=== PATIENT | male | born 1945 | race Caucasian/White ===

== ENCOUNTER 2017-07-27 10:13 | Emergency (ER) | payer MEDICARE, OTHER ==
[~2017-07-27] VITALS: Ht 182.9 cm; Wt 85.0 kg
[2017-07-27 11:29] LABS: BASOPHILS # (AUTO) 0.08 x10^3/uL (0-0.1); BASOPHILS % (AUTO) 1 % (0-1); EOSINOPHILS % (AUTO) 3 % (1-7); LYMPHOCYTES # (AUTO) 1.49 x10^3/uL (1-3.4); LYMPHOCYTES % (AUTO) 21 % (22-44); MD NO; MEAN CORPUSCULAR HEMOGLOBIN 19.6 pg (27.5-34.5); MEAN CORPUSCULAR HGB CONC 30.1 g/dL (33.2-36.2); MEAN CORPUSCULAR VOLUME 65.1 fL (81-97); MEAN PLATELET VOLUME 6.9 fL (7.4-10.4); MONOCYTES # (AUTO) 0.66 x10^3/uL (0.2-0.8); MONOCYTES % (AUTO) 9 % (2-9); NEUTROPHILS # (AUTO) 4.84 x10^3/uL (1.8-6.8); NEUTROPHILS % (AUTO) 67 % (42-75); PLATELET COUNT 455 x10^3/uL (130-400); RED BLOOD COUNT 3.89 x10^6/uL (4.38-5.82); RED CELL DISTRIBUTION WIDTH 18.7 % (9.4-14.8)
[2017-07-27 11:31] LABS: ALANINE AMINOTRANSFERASE 40 U/L (12-78); ALBUMIN 3.6 g/dL (3.4-5.0); ANION GAP 7 mmol/L (5-15); CALCIUM 7.9 mg/dL (8.5-10.1); CHLORIDE 107 mmol/L (98-107); CREATININE 1.03 mg/dL (0.7-1.3)
[2017-07-27 11:34] LABS: ALKALINE PHOSPHATASE 76 U/L (45-117); BILIRUBIN,TOTAL 0.4 mg/dL (0.2-1.0); TOTAL PROTEIN 7.2 g/dL (6.4-8.2)
[2017-07-27 13:51] VITALS: BP 97/56
[2017-07-27 14:15] VITALS: BP 114/67
[2017-07-27 15:55] VITALS: BP 105/66
[2017-07-27 15:59] VITALS: BP 112/63
[2017-07-27 16:59] VITALS: BP 101/79
[2017-07-27 17:28] VITALS: BP 105/65
== END 2017-07-27 17:31 | disposition home or self-care (01) ==
LOC: ED 13:06
DX: D50.9 Iron deficiency anemia, unspecified (principal); I10 Essential (primary) hypertension; E11.9 Type 2 diabetes mellitus without complications
CPT/HCPCS: 36415; 36430; 80053; 82728; 83540; 83550; 85025; 86850; 86900; 86923; 99285; P9016

== ENCOUNTER → 2017-09-09 | Outpatient (CLI) | payer OTHER, MEDICARE ==
[~2017-09-09] MED LIST: ASCO-96 PO; ASPI-621 PO; CLINDAMYCIN PHOS TP; DOXY100T PO; FERR324T5 PO; GABA300C10 PO; GLUC-121 PO; LISI-167 PO; LOVA40TA2 PO; METF500T5 PO; MULT-717 PO; POTASSIUM GLUC PO; TIMO5SOL11 EACHEYE; TRIA15CR2 TP; VITA100C8 PO
[2017-09-09 15:19] LABS: MEAN CORPUSCULAR HEMOGLOBIN 26.2 pg (27.5-34.5); MEAN CORPUSCULAR HGB CONC 32.4 g/dL (33.2-36.2); MEAN PLATELET VOLUME 7.3 fL (7.4-10.4); PLATELET COUNT 266 x10^3/uL (130-400); RED BLOOD COUNT 4.65 x10^6/uL (4.38-5.82); RED CELL DISTRIBUTION WIDTH 33.2 % (9.4-14.8)
[2017-09-09 15:28] LABS: ALBUMIN 3.5 g/dL (3.4-5.0); ANION GAP 7 mmol/L (5-15); CALCIUM 8.9 mg/dL (8.5-10.1); CHLORIDE 107 mmol/L (98-107)
[2017-09-09 15:33] LABS: ALANINE AMINOTRANSFERASE 36 U/L (12-78); ALKALINE PHOSPHATASE 80 U/L (45-117); BILIRUBIN,TOTAL 0.2 mg/dL (0.2-1.0); CREATININE 1.03 mg/dL (0.7-1.3); TOTAL PROTEIN 7.2 g/dL (6.4-8.2)
[2017-09-09 15:41] LABS: BASOPHILS # (AUTO) 0.04 x10^3/uL (0-0.1); BASOPHILS % (AUTO) 1 % (0-1); EOSINOPHILS # (AUTO) 0.27 x10^3/uL (0-0.4); EOSINOPHILS % (AUTO) 4 % (1-7); LYMPHOCYTES # (AUTO) 2.37 x10^3/uL (1-3.4); LYMPHOCYTES % (AUTO) 37 % (22-44); MD MORPH REVIEW ONLY; MONOCYTES # (AUTO) 0.78 x10^3/uL (0.2-0.8); MONOCYTES % (AUTO) 12 % (2-9); NEUTROPHILS # (AUTO) 3.03 x10^3/uL (1.8-6.8); NEUTROPHILS % (AUTO) 47 % (42-75)
[2017-09-09 15:42] LABS: ANISOCYTOSIS 2+; MICROCYTOSIS 1+
[2017-09-09 15:43] LABS: <PLATELET ESTIMATE> ADEQUATE; <PLT MORPHOLOGY> NORMAL PLT MORPH; OVALOCYTES 1+; TEAR DROPS 1+
== END ==
LOC: STAR 14:08
PROVIDERS: ADMIT Colon & Rectal Surgery; ATTEND Colon & Rectal Surgery
DX: Z01.818 Encounter for other preprocedural examination (principal)
CPT/HCPCS: 36415; 80053; 85025; 93005

== ENCOUNTER 2017-09-15 07:04 | Inpatient (IN) | payer OTHER, MEDICARE ==
[~2017-09-15] VITALS: Ht 182.9 cm; Wt 73.0 kg
[2017-09-15] MEDS ORDERED: LACTATED RINGERS 1,000 ML IV SCH (07:46)
[2017-09-15] MEDS ORDERED: LABETALOL 5MG/ML, 20ML IV PRN (08:00)
[2017-09-15] MEDS ORDERED: HYDROmorphone 1 MG/ML, 1ML IV PRN (08:00)
[2017-09-15] MEDS ORDERED: OXYcodone 5 MG/5 ML ORAL.SOL UDC PO PRN (08:00)
[2017-09-15] MEDS ORDERED: FENTANYL PF 100 MCG/2ML IV PRN (08:00)
[2017-09-15] MEDS ORDERED: MEPERIDINE/PF 25MG/0.5ML IVPush PRN (08:00)
[2017-09-15] MEDS ORDERED: ONDANSETRON 2MG/ML, 2ML IVPush PRN (08:00)
[2017-09-15] MEDS ORDERED: MIDAZOLAM 1 MG/ML, 2ML IV PRN (08:00)
[2017-09-15] MEDS ORDERED: DEXAMETHASONE 4 MG/ML, 1ML ONE (08:13)
[2017-09-15] MEDS ORDERED: ONDANSETRON 2MG/ML, 2ML ONE (08:13)
[2017-09-15] MEDS ORDERED: EPHEDRINE 50 MG/ML, 1ML ONE (08:14)
[2017-09-15] MEDS ORDERED: CEFAZOLIN 1,000 MG ONE ×2 (08:14→09:09)
[2017-09-15] MEDS ORDERED: WATER-INJECTION,STERILE 10 ML IV ONE (08:14)
[2017-09-15] MEDS ORDERED: METOCLOPRAMIDE 5 MG/ML, 2ML ONE (08:14)
[2017-09-15] MEDS ORDERED: PHENYLEPHRINE 10 MG/ML ONE (08:16)
[2017-09-15] MEDS ORDERED: SUCCINYLCHOLINE 20 MG/ML, 10ML ONE (08:17)
[2017-09-15] MEDS ORDERED: LIDOCAINE-MPF 2% ,5ML ONE (08:17)
[2017-09-15] MEDS ORDERED: BUPIVACAINE 0.25% ONE (08:50)
[2017-09-15] MEDS ORDERED: EPINEPHRINE 1 MG/ML, 1ML ONE (08:50)
[2017-09-15] MEDS ORDERED: FENTANYL PF 100 MCG/2ML ONE ×2 (08:59→11:38)
[2017-09-15] MEDS ORDERED: MIDAZOLAM 1 MG/ML, 2ML ONE ×2 (08:59)
[2017-09-15] MEDS ORDERED: LIDOCAINE GEL 2%, 5ML ONE (09:02)
[2017-09-15] MEDS ORDERED: BUPIVACAINE/PF-EPI 0.25% 1:200K INFIL ONE (09:26)
[2017-09-15] MEDS ORDERED: ROCURONIUM 10MG/ML,5ML ONE (11:37)
[2017-09-15] MEDS ORDERED: NEOSTIGMINE 1 MG/ML, 10ML ONE (11:37)
[2017-09-15] MEDS ORDERED: GLYCOPYRROLATE 0.4 MG/2 ML, 2ML ONE (11:37)
[2017-09-15] MEDS ORDERED: DIPHENHYDRAMINE 25 MG CAPSULE PO PRN (15:30)
[2017-09-15] MEDS ORDERED: MORPHINE SULFATE 4 MG/ML, 1ML IVPush PRN (15:30)
[2017-09-15] MEDS ORDERED: ONDANSETRON 2MG/ML, 2ML IV PRN (15:30)
[2017-09-15] MEDS ORDERED: LORazepam 2 MG/ML, 1ML IVPush PRN (15:30)
[2017-09-15] MEDS ORDERED: OXYcodone IR 5MG TABLET PO PRN (15:30)
[2017-09-15] MEDS ORDERED: LORazepam 1MG TABLET PO PRN (15:30)
[2017-09-15] MEDS ORDERED: CALCIUM CARBONATE 500 MG TAB.CHEW PO PRN (15:30)
[2017-09-15] MEDS: LACTATED RINGERS 1,000 ML IV SCH (17:07)
[2017-09-15] MEDS: KETOROLAC 30 MG/1 ML IVPush SCH ×2 (17:07→23:34)
[2017-09-15] MEDS: ACETAMINOPHEN 500 MG TABLET PO SCH ×2 (17:08→23:34)
[2017-09-15 20:00] VITALS: BP 114/61
[2017-09-16 00:11] VITALS: BP 116/58
[2017-09-16 03:48] VITALS: BP 116/58
[2017-09-16 05:04] LABS: ANION GAP 7 mmol/L (5-15); CHLORIDE 110 mmol/L (98-107); CREATININE 1.16 mg/dL (0.7-1.3)
[2017-09-16 05:06] LABS: MEAN CORPUSCULAR HEMOGLOBIN 27.6 pg (27.5-34.5); MEAN CORPUSCULAR HGB CONC 32.6 g/dL (33.2-36.2); MEAN CORPUSCULAR VOLUME 84.6 fL (81-97); MEAN PLATELET VOLUME 7.8 fL (7.4-10.4); PLATELET COUNT 222 x10^3/uL (130-400); RED BLOOD COUNT 3.87 x10^6/uL (4.38-5.82)
[2017-09-16] MEDS: ACETAMINOPHEN 500 MG TABLET PO SCH ×4 (05:13→23:54)
[2017-09-16] MEDS: KETOROLAC 30 MG/1 ML IVPush SCH ×4 (05:13→23:54)
[2017-09-16 05:47] LABS: BASOPHILS # (AUTO) 0.03 x10^3/uL (0-0.1); BASOPHILS % (AUTO) 0 % (0-1); EOSINOPHILS # (AUTO) 0.01 x10^3/uL (0-0.4); EOSINOPHILS % (AUTO) 0 % (1-7); LYMPHOCYTES % (AUTO) 15 % (22-44); MD MORPH REVIEW ONLY; MONOCYTES # (AUTO) 0.79 x10^3/uL (0.2-0.8); MONOCYTES % (AUTO) 7 % (2-9); NEUTROPHILS # (AUTO) 8.65 x10^3/uL (1.8-6.8); NEUTROPHILS % (AUTO) 77 % (42-75)
[2017-09-16 05:48] LABS: <PLATELET ESTIMATE> ADEQUATE; <PLT MORPHOLOGY> NORMAL PLT MORPH; ANISOCYTOSIS 2+; MICROCYTOSIS 1+; OVALOCYTES 1+
[2017-09-16 06:50] VITALS: BP 112/67
[2017-09-16] MEDS: ENOXAPARIN 40 MG/0.4 ML SQ SCH ×2 (09:11→10:28)
[2017-09-16] MEDS: LACTATED RINGERS 1,000 ML IV SCH (11:30)
[2017-09-16 13:50] VITALS: BP 115/69
[2017-09-16 19:21] VITALS: BP 117/69
[2017-09-17 02:16] VITALS: BP 111/69
[2017-09-17 05:32] LABS: MEAN CORPUSCULAR HEMOGLOBIN 28.1 pg (27.5-34.5); MEAN CORPUSCULAR HGB CONC 33.3 g/dL (33.2-36.2); MEAN CORPUSCULAR VOLUME 84.4 fL (81-97); MEAN PLATELET VOLUME 7.9 fL (7.4-10.4); PLATELET COUNT 194 x10^3/uL (130-400); RED BLOOD COUNT 3.34 x10^6/uL (4.38-5.82); RED CELL DISTRIBUTION WIDTH 32.3 % (9.4-14.8)
[2017-09-17 05:34] LABS: ANION GAP 7 mmol/L (5-15); CALCIUM 7.8 mg/dL (8.5-10.1); CHLORIDE 104 mmol/L (98-107)
[2017-09-17 05:35] LABS: CREATININE 1.04 mg/dL (0.7-1.3)
[2017-09-17] MEDS: ACETAMINOPHEN 500 MG TABLET PO SCH ×2 (05:47→12:05)
[2017-09-17] MEDS: KETOROLAC 30 MG/1 ML IVPush SCH ×2 (05:48→12:05)
[2017-09-17 06:23] LABS: ANISOCYTOSIS 2+; BASOPHILS # (AUTO) 0.03 x10^3/uL (0-0.1); BASOPHILS % (AUTO) 0 % (0-1); EOSINOPHILS % (AUTO) 3 % (1-7); LYMPHOCYTES # (AUTO) 1.77 x10^3/uL (1-3.4); LYMPHOCYTES % (AUTO) 18 % (22-44); MD MORPH REVIEW ONLY; MICROCYTOSIS 1+; MONOCYTES # (AUTO) 0.79 x10^3/uL (0.2-0.8); MONOCYTES % (AUTO) 8 % (2-9); NEUTROPHILS # (AUTO) 7.04 x10^3/uL (1.8-6.8); NEUTROPHILS % (AUTO) 71 % (42-75); OVALOCYTES 1+
[2017-09-17 06:25] LABS: <PLATELET ESTIMATE> ADEQUATE; <PLT MORPHOLOGY> NORMAL PLT MORPH; TEAR DROPS 1+
[2017-09-17 07:38] VITALS: BP 115/67
[2017-09-17] MEDS: LACTATED RINGERS 1,000 ML IV SCH (07:43)
[2017-09-17] MEDS: ENOXAPARIN 40 MG/0.4 ML SQ SCH (08:29)
[2017-09-17] MEDS ORDERED: OXYC1TAB7 PO (10:42)
[2017-09-17 13:00] VITALS: BP 121/70
== END 2017-09-17 13:30 | disposition home or self-care (01) | DRG 330 ==
LOC: ORIP 07:04 → 4NOR 14:37
PROVIDERS: ADMIT Colon & Rectal Surgery; ATTEND Colon & Rectal Surgery
PROC: 0WQF4ZZ Repair Abdominal Wall, Percutaneous Endoscopic Approach (ICD-10-PCS; 2017-09-15)
PROC: 0DN84ZZ Release Small Intestine, Percutaneous Endoscopic Approach (ICD-10-PCS; 2017-09-15)
PROC: 0DB84ZZ Excision of Small Intestine, Percutaneous Endoscopic Approach (ICD-10-PCS; 2017-09-15)
PROC: 0DTF4ZZ Resection of Right Large Intestine, Percutaneous Endoscopic Approach (ICD-10-PCS; principal; 2017-09-15 09:00)
DX: C18.9 Malignant neoplasm of colon, unspecified (principal); R71.0 Precipitous drop in hematocrit; K66.0 Peritoneal adhesions (postprocedural) (postinfection); G62.9 Polyneuropathy, unspecified; H40.9 Unspecified glaucoma; I10 Essential (primary) hypertension; Z90.49 Acquired absence of other specified parts of digestive tract; Z82.0 Family history of epilepsy and other diseases of the nervous system
CPT/HCPCS: 36415; 80048; 82962; 83735; 85025; 86850; 86900; 88307; 88309; C1729; J0171; J0690; J1100; J1650; J1885; J2250; J2405; J2710; J3010; J3490; J0330; J2370; J2765; J7120